=== PATIENT | female | born 1945 | race Caucasian/White ===

== ENCOUNTER 2022-06-04 22:39 | Outpatient (CLI) | payer OTHER, MEDICAID, SELFPAY | END 2022-06-04 22:40 | disposition home or self-care (01) | LOC: AMB 06-08 14:11 | PROVIDERS: PCP Family Medicine; Visit Provider Family Medicine | DX: S89.91XA Unspecified injury of right lower leg, initial encounter (principal); W01.0XXA Fall on same level from slipping, tripping and stumbling without subsequent striking against object, initial encounter; Y92.008 Other place in unspecified non-institutional (private) residence as the place of occurrence of the external cause | CPT/HCPCS: A0425; A0427 ==

== ENCOUNTER 2022-06-04 23:16 | Emergency (ER) | payer OTHER, MEDICAID, SELFPAY ==
[2022-06-04 23:16] VITALS: PULSE 58; RESP 20; TEMP 36.4; O2SAT 100; BMI 24.0
--- NOTE | 2022-06-04 23:38 | CRLHL7_ITS ---
For Patients: As a result of the Century Cures Act, medical imaging exams and procedure reports are released immediately into your electronic medical record. You may view this report before your referring provider. If you have questions, please contact your health care provider. INDICATION: Head injury from fall TECHNIQUE: CT Head without i.v. contrast. Coronal and sagittal reformats were obtained. COMPARISON: None FINDINGS: CSF space: Unremarkable for age. Brain: A portion of the vertex is excluded. No evidence of mass, acute infarction or hemorrhage is seen. No mass-effect or midline shift is seen. Mild diffuse cortical atrophy is noted. The brain parenchyma is otherwise normal in appearance with preservation of the duque-white matter junction. Calvarium: The visualized paranasal sinuses are well aerated. The mastoid air cells are clear. The visualized orbits are grossly unremarkable. The calvarium is unremarkable in appearance with no fractures identified. IMPRESSION: 1. No evidence of acute infarction, intracranial hemorrhage, or mass-effect seen. Please note that all CT scans at this facility use dose modulation, iterative reconstruction, and/or weight-based dosing when appropriate to reduce radiation dose to as low as reasonably achievable. Dictated by: Ghulam Steve MD @ 06/05/2022 00:20:13 (Electronically Signed)
--- NOTE | 2022-06-04 23:38 | CRLHL7_ITS ---
For Patients: As a result of the Cures Act, medical imaging exams and procedure reports are released immediately into your electronic medical record. You may view this report before your referring provider. If you have questions, please contact your health care provider. INDICATION: Pain after fall. COMPARISON: Pelvis and right femur from 05/21/2021. TECHNIQUE: The right hip was examined with AP and cross-table lateral views. An AP view of the pelvis is obtained for a total of three views. FINDINGS: The components of a right total hip prosthesis remain in anatomic alignment with no sign of fracture, loosening, or dislocation. There is a new, acute, oblique, periprosthetic fracture of the proximal right femoral shaft with mild anterior and lateral displacement of the distal fracture fragment. The components of a left total hip prosthesis in anatomic alignment with no sign of fracture, loosening, or dislocation. There is no sign of fracture of the enterprise osseous structures. The SI joints and pubic symphysis are normal in appearance. The rest of the bony pelvis and soft tissues are normal in appearance. COMPARISON IMPRESSION: New, acute, oblique, mildly displaced, periprosthetic fracture of the proximal right femoral shaft. Intact appearance of the components of the right total hip prosthesis. Intact appearance of the left hip including left total hip prosthesis. Dictated by Jozef Murrieta MD @ 06/05/2022 12:24:01 AM (Electronically Signed)
--- NOTE | 2022-06-04 23:40 | ED.GENADULT ---
HPI - General Adult General Time Seen by Provider: 23:30 Date Seen: 06/04/22 Chief complaint: Hip Injury/Pain Stated complaint: fall Time Seen by Provider: 06/04/22 23:18 Source: patient Mode of arrival: EMS Limitations: no limitations History of Present Illness HPI narrative: Patient is a 77-year-old female who took her usual bedtime medications of sertraline, Tylenol, trazodone. A short time later she felt the need to urinate and when she got up out of bed she was dizzy and fell to the floor. She had immediate pain in her right hip. She was unable to get up on her own. Her roommate and his daughter attempted to help her up onto a chair but the pain was so severe that she passed out. She was out for about 10 seconds. She did not hit her head. Paramedics were called and she is brought in by EMS. She has had previous bilateral knee and hip arthroplasties, none recently. She denies other injury. Related Data Home Medications Medication Instructions Recorded Confirmed atorvastatin 20 mg tablet mg 06/04/22 atorvastatin 40 mg tablet mg 06/04/22 cetirizine 10 mg tablet mg 06/04/22 folic acid 1 mg tablet 06/04/22 gabapentin 300 mg capsule mg 06/04/22 levothyroxine 137 mcg tablet mcg 06/04/22 sertraline 100 mg tablet mg 06/04/22 trazodone 100 mg tablet mg 06/04/22 Allergies Allergy/AdvReac Type Severity Reaction Status Date / Time adhesive tape Allergy Verified 06/04/22 23:36 amoxicillin Allergy Verified 06/04/22 23:36 benzocaine Allergy Verified 06/04/22 23:36 bupropion Allergy Verified 06/04/22 23:36 carbidopa Allergy Verified 06/04/22 23:36 cimetidine Allergy Verified 06/04/22 23:36 ketoconazole Allergy Verified 06/04/22 23:36 kiwi Allergy Swelling Verified 06/04/22 23:36 of Lip/Tongue/Throat levodopa Allergy Verified 06/04/22 23:36 niacin Allergy Verified 06/04/22 23:36 NSAIDS (Non-Steroidal Allergy Verified 06/04/22 23:36 Anti-Inflamma Sulfa (Sulfonamide Allergy Verified 06/04/22 23:36 Antibiotics) terfenadine Allergy Verified 06/04/22 23:36 theophylline [From Esvni-Dur] Allergy Verified 06/04/22 23:36 carbidopa-levodopa Allergy Uncoded 06/04/22 23:36 lanolin oil Allergy Uncoded 06/04/22 23:36 Review of Systems Narrative: She struggles with anxiety, depression, insomnia. She has arthritic pain in her knees, hips, back, hands that she manages with Tylenol. Review of systems in all other areas is noted to be negative. 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 antibiotic-impregnated cement spacer Acute delirium Adenomatous colon polyp Asthma Controlled type 2 diabetes mellitus with complication, without long-term current use of insulin DVT (deep venous thrombosis) Esophageal reflux Heart failure with preserved ejection fraction Hyperlipidemia Hypertension Hypothyroidism Major depressive disorder, recurrent episode BRITNEY (obstructive sleep apnea) Positive WILLOW (antinuclear antibody) PTSD (post-traumatic stress disorder) Pulmonary embolism Pyelonephritis Restless leg Rhabdomyolysis Stenosis of cervical spine SVT (supraventricular tachycardia) Urinary retention Vitamin B12 deficiency Surgical History (Updated 06/05/22 @ 00:57 by Stefano Martinez MD) History of total left knee replacement History of total right knee replacement Hx of gastric bypass S/P total left hip arthroplasty S/P total right hip arthroplasty Status post revision of total replacement of right knee Social History Smoking Status: Never smoker Do you use any of these nicotine containing products: None Non-prescribed substance use: denies use Exam Narrative: Exam Narrative: Vitals noted. HEENT: Conjunctiva clear. Tympanic membranes are pearly white bilaterally. Posterior pharynx is clear without erythema or exudate. Neck is supple without adenopathy, thyromegaly, carotid bruit. Lungs: Diminished but Clear to auscultation in all damian. No wheezes, rales, rhonchi. Heart: Regular rate and rhythm without murmur. Abdomen: Soft and nontender. No guarding, rigidity, rebound. Bowel sounds are normal. No palpable masses. Extremities: She has pain in the right thigh and a lot of pain with attempts to flex her knee or hip. No left leg pain. Skin: No abnormalities noted of the exposed skin. Neurologic: Awake, alert, fully oriented. Neurologic exam is nonfocal. Const: Vital Signs, click to edit/add: Vital Signs - 24 hr 06/04/22 23:16 06/05/22 01:58 Temperature 97.5 F L 97.5 F L Pulse Rate [Left P ulse Oximeter] 58 L 76 Respiratory Rate 20 14 Blood Pressure [Le ft Upper Arm] 125/61 Pulse Oximetry 100 97 Oxygen Delivery Me thod Room Air Room Air Course Course Hospital Course: Patient is seen and examined. She received fentanyl 50 mcg IV for pain. CT of her head is negative. CBC and BMP are normal other than a potassium of 3.3. TSH is pending. COVID swab is pending. X-ray of her right hip shows a periprosthetic fracture that is minimally displaced. The prosthesis itself is intact. I spoke with Africa Guzman, the orthopedic PA covering for our on-call orthopedic surgeon, and she informed me that we do not have the equipment to fix this type of fracture that our local surgeons generally did not attempt this type of surgery. She has recommended that I attempt to transfer the patient to a tertiary center that can repair this complicated fracture. She asked for and received 2nd dose of fentanyl. We will begin calling around to find a tertiary center with an open bed. The patient will be boarded in our emergency department until that time. Reevaluation(s) Reevaluation #1: Dr Shepherd from [facility] has kindly accepted the patient in transfer. They will call when she can be transported (currently on a wait list). I will ask Radiology to push the films. COVID negative. Reevaluation #2: Her TSH is 97. In reviewing her old chart it was 117 on 04/15/2022. Her hemoglobin A1c at that time was 5.9. She has a history of DVT and PE and is on Eliquis for anticoagulation. Her PCP is Sejal Ledesma MD at [facility]. Her current med list is: Atorvastatin 20 mg daily, Eliquis 2.5 mg b.i.d., Zyrtec 10 mg daily, folic acid 1 mg daily, hydrochlorothiazide 25 mg daily, gabapentin 300 mg t.i.d., Synthroid 137 mcg daily, sertraline 200 mg daily, trazodone 100 mg q.h.s.. She uses Tylenol and occasional Percocet for pain. Vital Signs Vital signs: Initial Vital Signs Temperature 97.5 F L 06/04/22 23:16 Temperature Source Temporal Artery Scan 06/04/22 23:16 Pulse Rate 58 L 06/04/22 23:16 Pulse Rhythm 06/04/22 23:16 Pulse Strength 3+ Normal 06/04/22 23:16 Respiratory Rate 20 06/04/22 23:16 Blood Pressure Position Supine 06/04/22 23:16 Pulse Oximetry 100 06/04/22 23:16 Oxygen Delivery Method 06/04/22 23:16 Vital Signs Temperature 97.5 F L 06/04/22 23:16 Pulse Rate 58 L 06/04/22 23:16 Respiratory Rate 20 06/04/22 23:16 Pulse Oximetry 100 06/04/22 23:16 Oxygen Delivery Method 06/04/22 23:16 Temperature 97.5 F L 06/05/22 01:58 Pulse Rate 76 06/05/22 01:58 Respiratory Rate 14 06/05/22 01:58 Blood Pressure 125/61 06/05/22 01:58 Pulse Oximetry 97 06/05/22 01:58 Oxygen Delivery Method 06/05/22 01:58 Medical Decision Making Lab Data Labs: Lab Results 06/04/22 06/04/22 06/04/22 Range/Units 23:30 23:30 23:30 WBC 9.53 (4.50-11.00) K/uL RBC 4.39 (4.00-5.20) m/uL Hgb 14.1 (12.0-16.0) gm/dL Hct 43.1 (33.0-51.0) % MCV 98 (80-100) fL MCH 32 (26-34) pg MCHC 33 (32-36) gm/dL RDW Coeff of Risa 11.9 (11.5-15.5) % Plt Count 257 (140-440) K/uL Neut % (Auto) 76.3 H (42.0-72.0) % Lymph % (Auto) 14.2 L (20-44) % [place] % (Auto) 5.0 (0.0-11.0) % Eos % (Auto) 4.1 (0.0-7.0) % Baso % (Auto) 0.2 (0.0-3.0) % Neut # (Auto) 7.30 H (1.7-7.0) K/uL Lymph # (Auto) 1.40 (0.90-2.90) K/uL [place] # (Auto) 0.50 (0.00-0.90) K/UL Eos # (Auto) 0.39 (0.00-0.50) K/uL Baso # (Auto) 0.02 (0.00-0.30) K/uL Sodium 139 (135-149) mmol/L Potassium 3.3 L (3.6-5.1) mmol/L Chloride 109 (96-114) mmol/L Carbon Dioxide 28 (20-32) mmol/L BUN 14 (7-30) mg/dL Creatinine 0.7 (0.5-1.5) mg/dL Estimated Creat Clear 50.80 Estimated GFR 90 ml/min Glucose 143 H (60-115) mg/dL Calcium 9.0 (8.4-10.6) mg/dL TSH 97.000 H (0.270-4.20) uIU/mL SARS-CoV-2 (PCR) (Negative) 06/05/22 Range/Units 00:20 WBC (4.50-11.00) K/uL RBC (4.00-5.20) m/uL Hgb (12.0-16.0) gm/dL Hct (33.0-51.0) % MCV (80-100) fL MCH (26-34) pg MCHC (32-36) gm/dL RDW Coeff of Risa (11.5-15.5) % Plt Count (140-440) K/uL Neut % (Auto) (42.0-72.0) % Lymph % (Auto) (20-44) % [place] % (Auto) (0.0-11.0) % Eos % (Auto) (0.0-7.0) % Baso % (Auto) (0.0-3.0) % Neut # (Auto) (1.7-7.0) K/uL Lymph # (Auto) (0.90-2.90) K/uL [place] # (Auto) (0.00-0.90) K/UL Eos # (Auto) (0.00-0.50) K/uL Baso # (Auto) (0.00-0.30) K/uL Sodium (135-149) mmol/L Potassium (3.6-5.1) mmol/L Chloride (96-114) mmol/L Carbon Dioxide (20-32) mmol/L BUN (7-30) mg/dL Creatinine (0.5-1.5) mg/dL Estimated Creat Clear Estimated GFR ml/min Glucose (60-115) mg/dL Calcium (8.4-10.6) mg/dL TSH (0.270-4.20) uIU/mL SARS-CoV-2 (PCR) Negative SARS-CoV-2 (Negative) Discharge Plan Discharge Clinical Impression: Periprosthetic fracture around internal prosthetic right hip joint, initial encounter Patient Disposition: [facility] Discharge Location: [facility] Condition: Stable Discharge Comment: CC: Baltazar
[2022-06-04 23:48] LABS: Basophils Absolute Auto 0.02 K/uL (0.00-0.30); Basophils Percent Auto 0.2 % (0.0-3.0); Eosinophils Absolute Auto 0.39 K/uL (0.00-0.50); Eosinophils Percent Auto 4.1 % (0.0-7.0); Hematocrit 43.1 % (33.0-51.0); Hemoglobin* 14.1 gm/dL (12.0-16.0); Immature Granulocytes Abs Auto 0.02 K/uL (0.00-0.30); Immature Granulocytes Pct Auto 0.2 %; Lymphocytes Percent Auto 14.2 % (20-44); Mean Corpuscular HGB Conc 33 gm/dL (32-36); Mean Corpuscular Hemoglobin 32 pg (26-34); Mean Corpuscular Volume 98 fL (80-100); Neutrophils Percent Auto 76.3 % (42.0-72.0); Platelet Count* 257 K/uL (140-440); RDW Coefficient of Variation % 11.9 % (11.5-15.5); Red Blood Count 4.39 m/uL (4.00-5.20); Slide Review Reflex No; White Blood Count* 9.53 K/uL (4.50-11.00)
[2022-06-05 00:01] LABS: Chloride* 109 mmol/L (96-114); Potassium* 3.3 mmol/L (3.6-5.1); Sodium* 139 mmol/L (135-149)
[2022-06-05 00:04] LABS: Blood Urea Nitrogen* 14 mg/dL (7-30); Carbon Dioxide* 28 mmol/L (20-32); Creatinine* 0.7 mg/dL (0.5-1.5); Estimated Glomerular Filt Rate 90 ml/min; Glucose* 143 mg/dL (60-115)
[2022-06-05] MEDS: fentaNYL 100 MCG/2 ML inj 50 MCG IVP ×3 (00:17→03:15)
[2022-06-05 01:21] LABS: SARS PCR* Negative SARS-CoV-2 (Negative)
[2022-06-05 01:58] VITALS: BP 125/61; PULSE 76; RESP 14; TEMP 36.4; O2SAT 97
--- NOTE | 2022-06-05 02:16 | ED.NURSE ---
Report to accepting [facility] RN. Patient to be transferred to [facility], [address], Room 9108 - Bed 2. EMS Dispatch notified. Patient resting on cot in room.
== END 2022-06-05 03:41 | disposition short-term general hospital (02) ==
PROVIDERS: Emergency Provider Family Medicine; PCP Family Medicine
DX: M97.01XA Periprosthetic fracture around internal prosthetic right hip joint, initial encounter (principal); W19.XXXA Unspecified fall, initial encounter; R42 Dizziness and giddiness; Z13.29 Encounter for screening for other suspected endocrine disorder
CPT/HCPCS: 36415; 70450; 73502; 80048; 84443; 85025; 87635; 99283; 99285; J3010

== ENCOUNTER 2022-06-05 03:26 | Outpatient (CLI) | payer OTHER, MEDICAID, SELFPAY | END 2022-06-05 03:27 | disposition home or self-care (01) | PROVIDERS: PCP Family Medicine; Visit Provider Family Medicine | DX: S72.91XD Unspecified fracture of right femur, subsequent encounter for closed fracture with routine healing (principal) | CPT/HCPCS: A0425; A0426; A0428 ==

== ENCOUNTER 2023-06-21 10:13 | Outpatient (CLI) | payer OTHER, SELFPAY | END 2023-06-21 10:14 | disposition home or self-care (01) | LOC: AMB 06-22 11:56 | PROVIDERS: PCP Family Medicine; Visit Provider Family Medicine | DX: R41.82 Altered mental status, unspecified (principal); R53.1 Weakness | CPT/HCPCS: A0425; A0429 ==

== ENCOUNTER 2023-06-21 10:49 | Observation (INO) | payer OTHER, SELFPAY ==
[2023-06-21] VITALS (7 sets, daily range): BP systolic 127–150; BP diastolic 53–68; PULSE 73–89; RESP 16–18; TEMP 36.3–36.6; O2SAT 98–100; BMI 21.1; BMI 20.8
--- NOTE | 2023-06-21 11:41 | ED.GENADULT ---
HPI - General Adult General Chief complaint: Weakness Stated complaint: Weakness Time Seen by Provider: 06/21/23 11:41 History of Present Illness HPI narrative: Significant other phoned for EMS this AM to report weakness and ask for transport for patient. EMS state she was in bed, had not moved from bed for some time and was incontinent of old urine and stool. She reported that she is too weak to move though significant other states this is on?going issue and stems from lack of ambition. She reports numerous falls from weakness over several weeks but no injuries. Patient would like placement in a skilled nursing and reports a social service worker through [facility] but is not very helpful. Vulnerable adult report was filed by PD due to state of apartment. 78-year-old woman presenting to the emergency department with concern of weakness. Has not had any reported fever. I ask Apoorva if she has a roommate. She thinks that they probably moved out by now. Apparently has a payor through the [facility]. She apparently is unsure how long this arrangement has been in place or why it was arranged. Her roommate apparently would get her groceries. Apparently Apoorva called for EMS for help today. She notes a fall recently on her walker with pain in the anterior low chest. Complicating her ambulation is left leg pain. She says that it is a combination of diabetic neuropathy and unrelated pain. Denies dysuria or cough or specific abdominal pain but indicates the low chest pain. Does acknowledge that there might be some sores on her butt. EMS and PD noting state of apartment have filed vulnerable adult report. I do call to brother who saw her yesterday just lying in bed. Otherwise he says that she lives independently and does not have much information offer. Uncertain why has had payee. I tatitlek back around to ask further questions about needs here today, she reports that she has just simply been too weak and has been falling frequently. She has been falling onto her walker. She feels that she needs at least placement in assisted living. Underlying history of depression, PTSD, B12 deficiency setting gastric bypass. Related Data Home Medications Medication Instructions Recorded Confirmed atorvastatin 40 mg tablet 40 mg PO QPM 06/04/22 06/22/23 folic acid 1 mg tablet 1 mg PO DAILY 06/04/22 06/22/23 gabapentin 300 mg capsule 300 mg PO TID 06/04/22 06/22/23 levothyroxine 137 mcg tablet 137 mcg PO DAILY 06/04/22 06/22/23 trazodone 100 mg tablet 100 mg PO HS 06/04/22 06/22/23 Previous Rx's Medication Instructions Recorded chlorhexidine gluconate 0.12 % 15 ml SWISH/SPIT QID #900 mL 06/23/23 mouthwash cholecalciferol (vitamin D3) 25 25 mcg PO DAILY #30 tabs 06/23/23 mcg (1,000 unit) tablet cyanocobalamin (vitamin B-12) 500 1,000 mcg (2 x 500 mcg) PO DAILY 06/23/23 mcg tablet (Vitamin B-12) #30 tabs melatonin 3 mg tablet 3 mg PO HS PRN #30 tabs 06/23/23 multivitamin with folic acid 400 1 tab PO BID #60 tabs 06/23/23 mcg tablet (Thera) sertraline 100 mg tablet 100 mg PO HS #30 tabs 06/23/23 thiamine HCl (vitamin B1) 500 mg 500 mg PO BID #60 tabs 06/23/23 tablet Allergies Allergy/AdvReac Type Severity Reaction Status Date / Time adhesive tape Allergy Verified 06/04/22 23:36 amoxicillin Allergy Verified 06/04/22 23:36 benzocaine Allergy Verified 06/04/22 23:36 bupropion Allergy Verified 06/04/22 23:36 carbidopa Allergy Verified 06/04/22 23:36 cimetidine Allergy Verified 06/04/22 23:36 ketoconazole Allergy Verified 06/04/22 23:36 kiwi Allergy Swelling Verified 06/04/22 23:36 of Lip/Tongue/Throat levodopa Allergy Verified 06/04/22 23:36 niacin Allergy Verified 06/04/22 23:36 NSAIDS (Non-Steroidal Allergy Verified 06/04/22 23:36 Anti-Inflamma Sulfa (Sulfonamide Allergy Verified 06/04/22 23:36 Antibiotics) terfenadine Allergy Verified 06/04/22 23:36 theophylline [From Esvin-Dur] Allergy Verified 06/04/22 23:36 carbidopa-levodopa Allergy Uncoded 06/04/22 23:36 lanolin oil Allergy Uncoded 06/04/22 23:36 Review of Systems Status of ROS: Reports: 6 or more systems reviewed and unremarkable except as noted in History and below [facility] Medical History (Updated 06/29/23 @ 00:01 by Background Daemon) Discharge planning issues ?Z02.9 - Encounter for administrative examinations, unspecified (ICD-10) Nutritional deficiency ?E63.9 - Nutritional deficiency, unspecified (ICD-10) Cognitive impairment ?R41.89 - Other symptoms and signs involving cognitive functions and awareness (ICD-10) Pulmonary embolism ?I26.99 - Other pulmonary embolism without acute cor pulmonale (ICD-10) Positive WILLOW (antinuclear antibody) ?R76.8 - Other specified abnormal immunological findings in serum (ICD-10) Restless leg ?G25.81 - Restless legs syndrome (ICD-10) Pyelonephritis ?N12 - Tubulo-interstitial nephritis, not specified as acute or chronic (ICD-10) Urinary retention ?R33.9 - Retention of urine, unspecified (ICD-10) BRITNEY (obstructive sleep apnea) ?G47.33 - Obstructive sleep apnea (adult) (pediatric) (ICD-10) Asthma ?J45.909 - Unspecified asthma, uncomplicated (ICD-10) PTSD (post-traumatic stress disorder) ?F43.10 - Post-traumatic stress disorder, unspecified (ICD-10) Major depressive disorder, recurrent episode ?F33.9 - Major depressive disorder, recurrent, unspecified (ICD-10) Acute delirium ?R41.0 - Disorientation, unspecified (ICD-10) 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 antibiotic-impregnated cement spacer ?Z89.529 - Acquired absence of unspecified knee (ICD-10) Stenosis of cervical spine ?M48.02 - Spinal stenosis, cervical region (ICD-10) Rhabdomyolysis ?M62.82 - Rhabdomyolysis (ICD-10) Adenomatous colon polyp ?D12.6 - Benign neoplasm of colon, unspecified (ICD-10) Esophageal reflux ?K21.9 - Gastro-esophageal reflux disease without esophagitis (ICD-10) Controlled type 2 diabetes mellitus with complication, without long-term current use of insulin ?E11.8 - Type 2 diabetes mellitus with unspecified complications (ICD-10) Vitamin B12 deficiency ?E53.8 - Deficiency of other specified B group vitamins (ICD-10) Hypothyroidism ?E03.9 - Hypothyroidism, unspecified (ICD-10) Hyperlipidemia ?E78.5 - Hyperlipidemia, unspecified (ICD-10) SVT (supraventricular tachycardia) ?I47.1 - Supraventricular tachycardia (ICD-10) Heart failure with preserved ejection fraction ?I50.30 - Unspecified diastolic (congestive) heart failure (ICD-10) DVT (deep venous thrombosis) ?I82.409 - Acute embolism and thrombosis of unspecified deep veins of unspecified lower extremity (ICD-10) Hypertension ?I10 - Essential (primary) hypertension (ICD-10) Surgical History History of total left knee replacement ?Z96.652 - Presence of left artificial knee joint (ICD-10) History of total right knee replacement ?Z96.651 - Presence of right artificial knee joint (ICD-10) S/P total right hip arthroplasty ?Z96.641 - Presence of right artificial hip joint (ICD-10) S/P total left hip arthroplasty ?Z96.642 - Presence of left artificial hip joint (ICD-10) Status post revision of total replacement of right knee ?Z96.651 - Presence of right artificial knee joint (ICD-10) Hx of gastric bypass ?Z98.84 - Bariatric surgery status (ICD-10) Family History (Updated 06/21/23 @ 18:13 by Devonte Rodriguez MD) Mother Diabetes Father Diabetes Stroke Social History (Updated 06/21/23 @ 18:14 by Devonte Rodriguez MD) Narrative: She lives in an apartment with her friend Roberto. She has never been a smoker. She rarely drinks alcohol. No recreational drug use. Code status is DNR. Healthcare power of contract attorney is her brother, Chino Fuentes, of [place] What is your current living situation?: I have a place to live at present, but am concerned about future Problems where you live: no known problems Problems where you live details: none In the past 12 months, utilities in danger of being shut off: no In past 12 months, lack of transportation kept you from medical appts, meetings, work, or getting things needed for daily living: no In the past 12 mos, have been you worried that your food would run out before you had money to buy more?: never true In the past 12 mos, the food you bought just didn't last and you didn't have money to buy more?: never true Highest level of school completed/degree received: Doctoral degree Smoking Status: Never smoker Do you use any of these nicotine containing products: None How often do you have a drink containing alcohol: monthly or less AUDIT-C Alcohol total score: 1 Non-prescribed substance use: denies use Caffeine: Yes How often does anyone, including family, friends and others, physically hurt you: never How often does anyone, including family, friends and others, insult or talk down to you: never How often does anyone, including family, friends and others, threaten you with harm: never How often does anyone, including family, friends and others, scream or curse at you: never service: No Exam Narrative: Exam Narrative: Smell of urine and ketones when I enter the room. Seems little distracted or slightly confused sometimes when answering questions. Cranial nerves 2-12 intact. Well-healed surgical scars over bilateral knees. No indication of injury/bruising on anterior chest in areas of reported pain. Pushes my hand away during exam over the anterior lower ribs bilaterally in apparent pain. Abdomen otherwise is soft and appears to be nontender. Gingivitis in her mouth which actually appears moist. Missing various dentition/decay. Lungs are clear. Needs some assistance to get to sitting. Heart is in regular rate and rhythm. Extremities are well perfused. Moving upper extremities without difficulty. Able to raise either leg from the bed without particular pain or disability. Const: Vital Signs, click to edit/add: Vital Signs - 24 hr 06/21/23 11:09 06/21/23 11:50 06/21/23 15:43 Temperature 97.4 F L Pulse Rate [Pulse Oximeter] 84 83 82 Respiratory Rate 18 18 18 Blood Pressure [Ri ght Upper Arm] 127/68 139/61 150/67 H Pulse Oximetry 99 100 98 Oxygen Delivery Me thod Room Air Room Air Documenting provider has reviewed patient's vital signs: yes Course Vital Signs Vital signs: Initial Vital Signs Temperature 97.4 F L 06/21/23 11:09 Temperature Source Temporal Artery Scan 06/21/23 11:09 Pulse Rate 84 06/21/23 11:09 Respiratory Rate 18 06/21/23 11:09 Blood Pressure 127/68 06/21/23 11:09 Blood Pressure Mean 87 06/21/23 11:09 Pulse Oximetry 99 06/21/23 11:09 Oxygen Delivery Method Room Air 06/21/23 11:09 Vital Signs Temperature 97.4 F L 06/21/23 11:09 Pulse Rate 84 06/21/23 11:09 Respiratory Rate 18 06/21/23 11:09 Blood Pressure 127/68 06/21/23 11:09 Pulse Oximetry 99 06/21/23 11:09 Oxygen Delivery Method Room Air 06/21/23 11:09 Temperature 97.8 F 06/23/23 07:00 Pulse Rate 93 06/23/23 07:00 Respiratory Rate 20 06/23/23 07:00 Blood Pressure 124/64 06/23/23 07:00 Pulse Oximetry 94 06/23/23 07:00 Oxygen Delivery Method Room Air 06/23/23 07:00 Medications Administered Medications: Discontinued Medications Generic Name Dose Route Start Last Admin Trade Name Freq PRN Reason Stop Dose Admin Atorvastatin Calcium 40 mg 06/21/23 21:00 06/22/23 20:45 Atorvastatin Calcium 40 Mg Tablet PO 40 mg HS SIRENA Administration Chlorhexidine Gluconate 15 ml 06/21/23 21:00 06/23/23 09:10 Chlorhexidine Gluconate 473 Ml Mouthwash SWISH/SPIT 15 ml QID SIRENA Administration Cyanocobalamin 1,000 mcg 06/22/23 09:00 06/23/23 09:10 Cyanocobalamin (Vitamin B-12) 500 Mcg Tablet PO 1,000 mcg DAILY SIRENA Administration Enoxaparin Sodium 40 mg 06/21/23 21:00 06/22/23 20:43 Enoxaparin 40 Mg/0.4 Ml Inj SUBCUT 40 mg HS SIRENA Administration Folic Acid 1 mg 06/22/23 09:00 06/23/23 09:10 Folic Acid 1 Mg Tablet PO 1 mg DAILY SIRENA Administration Gabapentin 300 mg 06/21/23 21:00 06/23/23 09:10 Gabapentin 300 Mg Capsule PO 300 mg TID SIRENA Administration Sodium Chloride 1,000 mls @ 1,000 mls/hr 06/21/23 12:08 06/21/23 15:18 0.9 % Sodium Chloride 1000 Ml IV 06/21/23 13:07 Infused .Q1H ONE Infusion Lactated Ringer's 1,000 mls @ 1,000 mls/hr 06/21/23 14:43 06/21/23 16:16 Lactated Ringers 1000 Ml IV 06/21/23 15:42 Infused .Q1H ONE Infusion Thiamine HCl 500 mg/ Sodium 105 mls @ 105 mls/hr 06/22/23 12:00 06/23/23 04:51 Chloride IVPB 06/24/23 04:59 Infused Q8H SIRENA Infusion Levothyroxine Sodium 25 mcg 06/22/23 06:00 06/23/23 06:05 Levothyroxine 25 Mcg Tablet PO 25 mcg DAILY@0600 SIRENA Administration Levothyroxine Sodium 112 mcg 06/22/23 07:00 06/23/23 06:05 Levothyroxine 112 Mcg Tablet PO 112 mcg DAILY@0700 SIRENA Administration Melatonin 3 mg 06/21/23 17:45 06/21/23 22:28 Melatonin 3 Mg Tablet PO 3 mg HS PRN Administration Multivitamins/Minerals 1 tab 06/21/23 21:00 06/23/23 09:10 Multivitamin/Minerals 1 Tablet PO 1 tab BID SIRENA Administration Sertraline HCl 100 mg 06/21/23 21:00 06/22/23 20:45 Sertraline 100 Mg Tablet PO 100 mg HS SIRENA Administration Sodium Chloride 5 ml 06/21/23 21:00 06/22/23 19:51 Sodium Chloride 0.9 % (Flush) 10 Ml Syringe IVF 5 ml BID SIRENA Administration Sodium Chloride 250 ml 06/22/23 11:45 06/22/23 12:00 0.9 % Sodium Chloride 250 Ml IV 250 ml Q24H SIRENA Administration Thiamine HCl 500 mg 06/22/23 09:00 06/22/23 08:38 Thiamine 100 Mg Tablet PO 500 mg DAILY SIRENA Administration Trazodone HCl 100 mg 06/21/23 21:00 06/22/23 20:45 Trazodone Hcl 50 Mg Tablet PO 100 mg HS SIRENA Administration Vitamin D 25 mcg 06/22/23 09:00 06/23/23 09:10 Cholecalciferol (Vitamin D3) 25 Mcg Tablet (1000 Unit) PO 25 mcg DAILY SIRENA Administration Medical Decision Making MDM Narrative Medical decision making narrative: At a minimum I would presume significant dehydration due to poor self cares and evidence by smell of ketones in the room. Look for evidence of infection. It was difficult to obtain IV presumably due to dehydration status. IV has been placed and receiving initially normal saline. Transition to LR. Concern of potential sacral or buttock ulcers/erosions. Once finally up to commode which had been resistant to do, noted by nursing to be otherwise diffusely covered with feculent material and urine. There is erythema but no breakdown in skin as reported to me. Once finally able to obtain urine, clearly caught a treated with 4+ ketones but otherwise no evidence of infection. Labs otherwise reassuring though concentrated with hemoglobin of 15.5. Chest x-ray reviewed by me looks to be without infiltrate with normal cardiac silhouette. This was not a dedicated rib study. Otherwise has been vitally well during time in the emergency department. Appears to have a little more energy after some hydration. I would expect her to be admitted to this facility. We had inquired with social Work; pending further assessment here. Medical Records Medical records reviewed: Yes I reviewed the patient's medical records Lab Data Lab results reviewed: Yes I reviewed the patient's lab results Labs: Lab Results 06/21/23 06/21/23 06/21/23 Range/Units 13:40 15:35 15:56 WBC 7.31 (4.50-11.00) K/uL RBC 4.84 (4.00-5.20) m/uL Hgb 15.5 (12.0-16.0) gm/dL Hct 47.8 (33.0-51.0) % MCV 99 (80-100) fL MCH 32 (26-34) pg MCHC 32 (32-36) gm/dL RDW Coeff of Risa 11.9 (11.5-15.5) % Plt Count 295 (140-440) K/uL Neut % (Auto) 77.3 H (42.0-72.0) % Lymph % (Auto) 17.4 L (20-44) % Seminole % (Auto) 4.4 (0.0-11.0) % Eos % (Auto) 0.0 (0.0-7.0) % Baso % (Auto) 0.1 (0.0-3.0) % Neut # (Auto) 5.70 (1.7-7.0) K/uL Lymph # (Auto) 1.30 (0.90-2.90) K/uL [place]in[place] # (Auto) 0.30 (0.00-0.90) K/UL Eos # (Auto) 0.00 (0.00-0.50) K/uL Baso # (Auto) 0.01 (0.00-0.30) K/uL Abs Immat Gran (auto) 0.06 (0.00-0.30) K/uL Imm/Tot Granulo (auto) 0.8 % Sodium 139 (135-149) mmol/L Potassium 5.2 H (3.6-5.1) mmol/L Chloride 106 (96-114) mmol/L Carbon Dioxide 12 L (20-32) mmol/L Anion Gap 21 H (7-15) mEq/L BUN 27 (7-30) mg/dL Creatinine 0.7 (0.5-1.5) mg/dL Estimated Creat Clear 49.69 Estimated GFR 90 ml/min Glucose 77 (60-115) mg/dL Lactate 0.7 (0.5-1.9) mmol/L Calcium 10.0 (8.4-10.6) mg/dL Magnesium 2.1 (1.5-2.6) mg/dL Total Bilirubin 0.8 (0.1-1.5) mg/dL Direct Bilirubin 0.5 (0.0-0.5) mg/dL AST 31 (12-35) U/L ALT 15 (4-35) U/L Alkaline Phosphatase 105 (40-150) U/L Total Creatine Kinase 90 (41-117) U/L C-Reactive Protein < 0.5 L (0.5-1.0) mg/dL NT-Pro-B Natriuret Pep 785 pg/mL Total Protein 7.6 (6.0-8.3) g/dL Albumin 4.6 (3.3-5.0) g/dL TSH 0.436 (0.270-4.20) uIU/mL Urine Color Yellow (Yellow) Urine Appearance Turbid A (Clear) Urine pH 5.5 (5.0-8.5) Ur Specific [place] >= 1.030 (1.000-1.030) Urine Protein Negative (Negative) Urine Glucose (UA) Negative (Negative) Urine Ketones 4+ A (Negative) Urine Blood Negative (Negative) Urine Nitrite Negative (Negative) Urine Bilirubin 1+ A (Negative) Urine Urobilinogen 0.2 (0.2-1.0) Ur Leukocyte Esterase Negative (Negative) Urine RBC 0-2 (0-2) Urine WBC 0-2 (0-5) Ur Squamous Epith Cells Few (None-Few) Urine Bacteria None (None) Urine Opiates Screen Negative (Negative) Ur Oxycodone Screen Negative (Negative) Urine Methadone Screen Negative (Negative) Ur Barbiturates Screen Negative (Negative) U Tricyclic Antidepress Negative (Negative) Ur Phencyclidine Scrn Negative (Negative) Ur Amphetamines Screen Negative (Negative) U Methamphetamines Scrn Negative (Negative) U Benzodiazepines Scrn Negative (Negative) Urine Cocaine Screen Negative (Negative) U Marijuana (THC) Screen Negative (Negative) Ur Drug Screen Comment See Note Ethyl Alcohol < 0.01 L (0.01-0.03) % SARS-CoV-2 (PCR) Negative SARS-CoV-2 (Negative) Influenza Type A (PCR) Negative PCR FLU A (Negative) Influenza Type B (PCR) Negative PCR FLU B (Negative) RSV (PCR) Negative PCR RSV (Negative) Lab Acknowledgement Test Added ECG Data Attestation: I personally reviewed and interpreted this ECG as follows: (Sinus rhythm at rate of 78. There is QTc noted of 501ms) Discharge Plan Discharge Clinical Impression: Adult failure to thrive, Dehydration, Weakness Patient Disposition: Admitted As Observation Condition: Improved Activity Level: Activity as Tolerated Discharge Diet: Regular
--- NOTE | 2023-06-21 12:09 | XR_ITS ---
Patient: ANH HERNANDEZ Facility:?[facility] Patient ID:?[id number] Site Patient ID:?[id number]. Site :?[id number] Study:?XRay-Chest 1 VIEW PORTABLE-06/21/2023 12:47:27 PM Ordering Physician:AZUCENA Final Report: INDICATION: LOW BILATERAL ANTERIOR CHEST WALL PAIN TECHNIQUE: Chest 1 view. COMPARISON: May 21, 2021. FINDINGS: Cardiovascular and mediastinum: Cardiomediastinal silhouette is within normal limits. Lungs and pleural spaces: Lungs are clear. No evidence of pleural effusion. No pneumothorax identified. Bones and soft tissues: Unremarkable. IMPRESSION: No acute cardiopulmonary process identified. No significant interval change. Dictated by Yelena Paiz MD @ 06/21/2023 1:52:18 PM Signed by:?Yelena Paiz MD @06/21/2023 1:52:18 PM (Electronic Signature)
[2023-06-21] MEDS: 0.9 % SODIUM CHLORIDE 1000 ml 1,000 ML IV (13:48)
[2023-06-21 13:50] LABS: Lactate* 0.7 mmol/L (0.5-1.9)
[2023-06-21 13:56] LABS: Basophils Absolute Auto 0.01 K/uL (0.00-0.30); Basophils Percent Auto 0.1 % (0.0-3.0); Hematocrit 47.8 % (33.0-51.0); Hemoglobin* 15.5 gm/dL (12.0-16.0); Immature Granulocytes Abs Auto 0.06 K/uL (0.00-0.30); Immature Granulocytes Pct Auto 0.8 %; Lymphocytes Percent Auto 17.4 % (20-44); Mean Corpuscular HGB Conc 32 gm/dL (32-36); Mean Corpuscular Hemoglobin 32 pg (26-34); Mean Corpuscular Volume 99 fL (80-100); Monocytes Percent Auto 4.4 % (0.0-11.0); Neutrophils Percent Auto 77.3 % (42.0-72.0); Platelet Count* 295 K/uL (140-440); RDW Coefficient of Variation % 11.9 % (11.5-15.5); Red Blood Count 4.84 m/uL (4.00-5.20); White Blood Count* 7.31 K/uL (4.50-11.00)
[2023-06-21 13:57] LABS: Slide Review Reflex No
[2023-06-21 14:06] LABS: Albumin* 4.6 g/dL (3.3-5.0)
[2023-06-21 14:08] LABS: Chloride* 106 mmol/L (96-114); Potassium* 5.2 mmol/L (3.6-5.1); Sodium* 139 mmol/L (135-149)
[2023-06-21 14:09] LABS: Alkaline Phosphatase* 105 U/L (40-150); Aspartate Amino Transferase* 31 U/L (12-35); Bilirubin Direct* 0.5 mg/dL (0.0-0.5); Bilirubin Total* 0.8 mg/dL (0.1-1.5); Magnesium* 2.1 mg/dL (1.5-2.6); Total Protein* 7.6 g/dL (6.0-8.3)
[2023-06-21 14:10] LABS: Alanine Aminotransferase* 15 U/L (4-35)
[2023-06-21 14:11] LABS: Creatinine* 0.7 mg/dL (0.5-1.5); Est. Creatinine Clearance* 49.69; Estimated Glomerular Filt Rate 90 ml/min
[2023-06-21 14:12] LABS: Anion Gap 21 mEq/L (7-15); Blood Urea Nitrogen* 27 mg/dL (7-30); Carbon Dioxide* 12 mmol/L (20-32); Glucose* 77 mg/dL (60-115)
[2023-06-21 14:16] LABS: C Reactive Protein* < 0.5 mg/dL (0.5-1.0); Ethanol* < 0.01 % (0.01-0.03)
[2023-06-21 14:21] LABS: NT Pro B Type NatriureticPept* 785 pg/mL
[2023-06-21 14:33] LABS: PCR FLU A Negative PCR FLU A (Negative); PCR FLU B Negative PCR FLU B (Negative); PCR RSV Negative PCR RSV (Negative); SARS PCR* Negative SARS-CoV-2 (Negative)
[2023-06-21 15:13] LABS: Thyroid Stimulating Hormone* 0.436 uIU/mL (0.270-4.20)
[2023-06-21] MEDS: LACTATED RINGERS 1000 ML 1,000 ML IV (15:18)
[2023-06-21 15:43] LABS: Appearance Urine Turbid (Clear); Bilirubin Urine 1+ (Negative); Blood Urine Negative (Negative); Color Urine Yellow (Yellow); Glucose Urine Negative (Negative); Ketones Urine 4+ (Negative); Leukocyte Esterase Urine Negative (Negative); Nitrite Urine Negative (Negative); Protein Urine Negative (Negative); Specific Gravity Urine >= 1.030 (1.000-1.030); Urobilinogen Urine 0.2 (0.2-1.0); pH Urine 5.5 (5.0-8.5)
[2023-06-21 15:50] LABS: Amphetamine Screen Urine Negative (Negative); Barbiturate Screen Urine Negative (Negative); Benzodiazepines Screen Urine Negative (Negative); Cannabinoid Screen Urine Negative (Negative); Cocaine Screen Urine Negative (Negative); Methadone Screen Urine Negative (Negative); Methamphetamines Screen Urine Negative (Negative); Opiate Screen Urine Negative (Negative); Oxycodone Screen Urine Negative (Negative); Phencyclidine Screen Urine Negative (Negative); Tricyclic Antidepressant Urine Negative (Negative)
[2023-06-21 15:59] LABS: RBC Urine 0-2 (0-2); Squamous Epithelial Cell Urine Few (None-Few); WBC Urine 0-2 (0-5)
--- NOTE | 2023-06-21 16:06 | PC.SOCIAL ---
Social work: Received call from Teresa Vines [facility] Vulnerable Adult Worker, stating that she has received a report of unsafe living conditions at home. Teresa plans to follow up with the patient and requested to be notified if she is admitted. welfare eligibility worker to follow up as needed.
[2023-06-21 16:24] LABS: Creatine Kinase* 90 U/L (41-117)
--- NOTE | 2023-06-21 17:24 | CT_ITS ---
Patient: ANH HERNANDEZ Facility:?[facility] Patient ID:?[id number] Site Patient ID:?[id number]. Site :?[id number] Study:?CT-Head W/O-06/21/2023 6:01:03 PM Ordering Physician:DEBRA Final Report: Indication : Ataxia. Technique : CT of the brain without intravenous contrast. Comparison: None relevant available at the time of interpretation. Findings: Portions of the examination are suboptimal due to patient motion. No acute blurring of the duque-white differentiation. There is no intracranial hemorrhage. Asymmetric prominence of the temporal horn of the right lateral ventricle. There is asymmetric volume loss of the medial right temporal lobe. The 4th ventricle is midline. Basal cisterns appear patent. No abnormal extra- axial fluid collection identified. Mild parenchymal volume loss. There is mild patchy periventricular hypodensity, favored to represent chronic ischemic microvascular disease. There is no intracranial mass, mass effect or midline shift identified. No depressed calvarial fracture. Impression: 1. No acute intracranial process. 2. Mild chronic ischemic microvascular disease. 3. Nonspecific asymmetric volume loss of the medial right temporal lobe. Please note that all CT scans at this facility use dose modulation, iterative reconstruction, and/or weight-based dosing when appropriate to reduce radiation dose to as low as reasonably achievable. Dictated by Elvin Nunez MD @ 06/21/2023 7:04:43 PM Signed by:?Elvin Nunez MD @06/21/2023 7:04:43 PM (Electronic Signature)
--- NOTE | 2023-06-21 18:01 | XR_ITS ---
Patient: ANH HERNANDEZ Facility:?[facility] Patient ID:?[id number] Site Patient ID:?[id number]. Site :?[id number] Study:?XRay-Knee Left 3V-06/21/2023 6:26:32 PM Ordering Physician:DEBRA Final Report: INDICATION: Knee pain COMPARISON: None. TECHNIQUE: Three views left knee FINDINGS: No fracture. Normal alignment. Knee arthroplasty with components in good position. No loosening or subsidence. No periprosthetic fracture. No focal bone lesions. Normal bone mineralization. Soft tissues are normal. No knee joint effusion. No foreign body. IMPRESSION: Left knee arthroplasty. No complications or acute findings seen. Dictated by Mary Hunt MD @ 06/21/2023 7:28:24 PM Signed by:?Mary Hunt MD @06/21/2023 7:28:24 PM (Electronic Signature)
--- NOTE | 2023-06-21 18:04 | P.IMHP_ITS ---
Hospitalist- H&P: CAMPBELL History of Present Illness Date Seen: 06/21/23 Chief complaint: Weakness Narrative: Apoorva Fuentes is a 78 year old female admitted to the hospital through the emergency department when her friend and social media specialist became concerned that she would be unable to take care of herself. She has been quite weak. She tells me she has had difficulty with walking due to weakness and poor balance. She was found at home, unable to get out of bed, incontinent of bowel and bladder. Patient is unable to tell me any significant details of her past history. She does not know how long she has had problems with incontinence or weakness or poor balance. She tells me she has had some falls when she tries to walk with her walker and his bruised her right ribs and her left knee. She reports she falls down because her legs are too weak to hold her up but she also thinks she has a balance problem. She reports generalized, not focal weakness. She has not had recent illness. She specifically denies cold, cough, fever, sore throat, chest pain other than her rib pain on the right side. She has not had trouble breathing. She reports she has been eating normally and has a normal appetite. She has had no abdominal pain. She reports she has had some diarrhea or loose stools but unable to quantify for how much or for how long. She is not aware of blood in her stool. She has a history of gastric bypass in 2008. She has been taking a multivitamin and folic acid tablet daily. She was previously on vitamin B12 supplements until about 10 years ago. She is getting regular injections. Her chart indicates an allergy to niacin. She has not had any headache or visual disturbance. She reports no alteration in her sensation, paresthesias or numbness. He she does not feel that her coordination is gotten any worse except for poor balance. She reports that she rarely drinks alcohol, less than once a month. No recreational drug use. She has chronic depression but reports that her mood has been fairly good. She has been on lifelong antidepressants but has no current concerns about her mood or her health status. Review of Systems Narrative: Patient reports that she has been doing quite well except for her weakness, inability to walk and recent falls. Her only pain is in her right lower ribs and left knee. She is unable to tell me when her injuries to her ribs or knee occurred. [facility] Medical History (Updated 06/21/23 @ 18:29 by Devonte Rodriguez MD) Discharge planning issues ?Z02.9 - Encounter for administrative examinations, unspecified (ICD-10) Nutritional deficiency ?E63.9 - Nutritional deficiency, unspecified (ICD-10) Cognitive impairment ?R41.89 - Other symptoms and signs involving cognitive functions and awareness (ICD-10) Pulmonary embolism ?I26.99 - Other pulmonary embolism without acute cor pulmonale (ICD-10) Positive WILLOW (antinuclear antibody) ?R76.8 - Other specified abnormal immunological findings in serum (ICD-10) Restless leg ?G25.81 - Restless legs syndrome (ICD-10) Pyelonephritis ?N12 - Tubulo-interstitial nephritis, not specified as acute or chronic (ICD- 10) Urinary retention ?R33.9 - Retention of urine, unspecified (ICD-10) BRITNEY (obstructive sleep apnea) ?G47.33 - Obstructive sleep apnea (adult) (pediatric) (ICD-10) Asthma ?J45.909 - Unspecified asthma, uncomplicated (ICD-10) PTSD (post-traumatic stress disorder) ?F43.10 - Post-traumatic stress disorder, unspecified (ICD-10) Major depressive disorder, recurrent episode ?F33.9 - Major depressive disorder, recurrent, unspecified (ICD-10) Acute delirium ?R41.0 - Disorientation, unspecified (ICD-10) 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 antibiotic-impregnated cement spacer ?Z89.529 - Acquired absence of unspecified knee (ICD-10) Stenosis of cervical spine ?M48.02 - Spinal stenosis, cervical region (ICD-10) Rhabdomyolysis ?M62.82 - Rhabdomyolysis (ICD-10) Adenomatous colon polyp ?D12.6 - Benign neoplasm of colon, unspecified (ICD-10) Esophageal reflux ?K21.9 - Gastro-esophageal reflux disease without esophagitis (ICD-10) Controlled type 2 diabetes mellitus with complication, without long-term current use of insulin ?E11.8 - Type 2 diabetes mellitus with unspecified complications (ICD-10) Vitamin B12 deficiency ?E53.8 - Deficiency of other specified B group vitamins (ICD-10) Hypothyroidism ?E03.9 - Hypothyroidism, unspecified (ICD-10) Hyperlipidemia ?E78.5 - Hyperlipidemia, unspecified (ICD-10) SVT (supraventricular tachycardia) ?I47.1 - Supraventricular tachycardia (ICD-10) Heart failure with preserved ejection fraction ?I50.30 - Unspecified diastolic (congestive) heart failure (ICD-10) DVT (deep venous thrombosis) ?I82.409 - Acute embolism and thrombosis of unspecified deep veins of unspecified lower extremity (ICD-10) Hypertension ?I10 - Essential (primary) hypertension (ICD-10) Surgical History History of total left knee replacement ?Z96.652 - Presence of left artificial knee joint (ICD-10) History of total right knee replacement ?Z96.651 - Presence of right artificial knee joint (ICD-10) S/P total right hip arthroplasty ?Z96.641 - Presence of right artificial hip joint (ICD-10) S/P total left hip arthroplasty ?Z96.642 - Presence of left artificial hip joint (ICD-10) Status post revision of total replacement of right knee ?Z96.651 - Presence of right artificial knee joint (ICD-10) Hx of gastric bypass ?Z98.84 - Bariatric surgery status (ICD-10) Family History (Updated 06/21/23 @ 18:13 by Devonte Rodriguez MD) Mother Diabetes Father Diabetes Stroke Social History (Updated 06/21/23 @ 18:14 by Devonte Rodriguez MD) Narrative: She lives in an apartment with her friend Roberto. She has never been a smoker. She rarely drinks alcohol. No recreational drug use. Code status is DNR. Healthcare power of assistant city attorney is her brother, Chino Fuentes, of [place] What is your current living situation?: I have a place to live at present, but am concerned about future Problems where you live: no known problems Problems where you live details: none In the past 12 months, utilities in danger of being shut off: no In past 12 months, lack of transportation kept you from medical appts, meetings, work, or getting things needed for daily living: no In the past 12 mos, have been you worried that your food would run out before you had money to buy more?: never true In the past 12 mos, the food you bought just didn't last and you didn't have money to buy more?: never true Highest level of school completed/degree received: Doctoral degree Smoking Status: Never smoker Do you use any of these nicotine containing products: None How often do you have a drink containing alcohol: monthly or less AUDIT-C Alcohol total score: 1 Non-prescribed substance use: denies use Caffeine: Yes How often does anyone, including family, friends and others, physically hurt you : never How often does anyone, including family, friends and others, insult or talk down to you: never How often does anyone, including family, friends and others, threaten you with harm: never How often does anyone, including family, friends and others, scream or curse at you: never service: No Meds Home Medications and Allergies Home Medications Medication Instructions Recorded Confirmed Type atorvastatin 20 mg tablet mg 06/04/22 History atorvastatin 40 mg tablet mg 06/04/22 History cetirizine 10 mg tablet mg 06/04/22 History folic acid 1 mg tablet 06/04/22 History gabapentin 300 mg capsule mg 06/04/22 History levothyroxine 137 mcg tablet mcg 06/04/22 History sertraline 100 mg tablet mg 06/04/22 History trazodone 100 mg tablet mg 06/04/22 History Allergies Allergy/AdvReac Type Severity Reaction Status Date / Time adhesive tape Allergy Verified 06/04/22 23:36 amoxicillin Allergy Verified 06/04/22 23:36 benzocaine Allergy Verified 06/04/22 23:36 bupropion Allergy Verified 06/04/22 23:36 carbidopa Allergy Verified 06/04/22 23:36 cimetidine Allergy Verified 06/04/22 23:36 ketoconazole Allergy Verified 06/04/22 23:36 kiwi Allergy Swelling Verified 06/04/22 23:36 of Lip/Tongue/Throat levodopa Allergy Verified 06/04/22 23:36 niacin Allergy Verified 06/04/22 23:36 NSAIDS (Non-Steroidal Allergy Verified 06/04/22 23:36 Anti-Inflamma Sulfa (Sulfonamide Allergy Verified 06/04/22 23:36 Antibiotics) terfenadine Allergy Verified 06/04/22 23:36 theophylline [From Esvin-Dur] Allergy Verified 06/04/22 23:36 carbidopa-levodopa Allergy Uncoded 06/04/22 23:36 lanolin oil Allergy Uncoded 06/04/22 23:36 Exam Narrative: Exam Narrative: She is alert pleasant and in no distress. She gives her own history. She remembers her medications fairly well but unable to give any details of recent events. She is unaware of how long she has been in the hospital thinking it has been a few days. She was just admitted this afternoon. Head is without obvious trauma. Eyes are normal. Pupils are equal round reactive to light. Bilateral cataracts noted. Visual damian are intact. There is no facial asymmetry. Oropharynx with significant dental decay and dental loss. She has gingivitis. Neck is supple without mass or adenopathy. Respirations are clear to auscultation. No wheezing rales or rhonchi. Cardiovascular: S1, S2, regular rate and rhythm. 1/6 systolic murmur heard best at the right upper sternal border. No gallop or rub. Abdomen: Bowel sounds active. Abdomen is soft with out significant tenderness. No mass. She has minimal tenderness with palpation over her right costal margin at the right anterior axillary line. No obvious bruising or deformity. No liver tenderness. External genitalia normal. Upper extremities without obvious muscle atrophy or fasciculations. Reflexes are 1/4 at the biceps and brachia radialis bilaterally. Strength is 5/5 in all tested muscle groups, shoulder flexion extension, elbow flexion extension, wrist flexion extension, finger extension and joint setter strength. She has intact sensation to soft touch on her upper extremities. [id number] is accurate. No tremor. Lower extremities with no obvious muscle atrophy. Bilaterally surgical scars on both knees suggestive of knee arthroplasty. She has mild swelling around her left knee without redness or bruising. Palpation over the anterior left knee is diffusely tender. She tolerates range of motion in both knees fairly well. She has mild diffuse weakness in her lower extremities with hip flexion and ankle dorsiflexion and plantar flexion and great toe dorsiflexion. Right knee has normal flexion extension strength. Left knee has 4 over 5 strength in flexion extension with some discomfort. Deep tendon reflexes 1/4 at the Achilles and patella. Intact sensation to soft touch bilaterally. Const: Vital Signs, click to edit/add: Vital Signs - 24 hr 06/21/23 11:09 06/21/23 11:50 06/21/23 15:43 Temperature 97.4 F L Pulse Rate [Pulse Oximeter] 84 83 82 Respiratory Rate 18 18 18 Blood Pressure [Ri ght Arm] Blood Pressure [Ri ght Upper Arm] 127/68 139/61 150/67 H Pulse Oximetry 99 100 98 Oxygen Delivery Me thod Room Air Room Air 06/21/23 16:55 06/21/23 17:00 Temperature 97.5 F L Pulse Rate [Pulse Oximeter] 73 Respiratory Rate 16 16 Blood Pressure [Ri ght Arm] 147/62 H Blood Pressure [Ri ght Upper Arm] Pulse Oximetry 99 99 Oxygen Delivery Me thod Room Air Room Air Documenting provider has reviewed patient's vital signs: yes Hospitalist - H&P: Result Labs Labs: Short CBC 06/21/23 Range/Units 13:40 WBC 7.31 (4.50-11.00) K/uL Hgb 15.5 (12.0-16.0) gm/dL Hct 47.8 (33.0-51.0) % Plt Count 295 (140-440) K/uL BMP 06/21/23 13:40 Sodium 139 Potassium 5.2 H Chloride 106 Carbon Dioxide 12 L BUN 27 Creatinine 0.7 Glucose 77 Calcium 10.0 Cardiac Enzymes 06/21/23 Range/Units 13:40 Total Creatine Kinase 90 (41-117) U/L Liver Function 06/21/23 Range/Units 13:40 Total Bilirubin 0.8 (0.1-1.5) mg/dL Direct Bilirubin 0.5 (0.0-0.5) mg/dL AST 31 (12-35) U/L ALT 15 (4-35) U/L Alkaline Phosphatase 105 (40-150) U/L Albumin 4.6 (3.3-5.0) g/dL Urine 06/21/23 Range/Units 15:35 Urine Color Yellow (Yellow) Urine Appearance Turbid A (Clear) Urine pH 5.5 (5.0-8.5) Ur Specific [place] >= 1.030 (1.000-1.030) Urine Protein Negative (Negative) Urine Glucose (UA) Negative (Negative) Assessment and Plan Assessment and plan (1) Cognitive impairment: Problem comment: Patient has marked inability to give history of recent events. Concern for chronic neurologic problem Status: Acute (2) Weakness: Problem comment: Appears to be generalized. Further evaluation to determine if this is a problem with deconditioning or neuro muscular weakness or other neurologic problem or all of the above Status: Acute (3) Major depressive disorder, recurrent episode: Problem comment: She appears to be fairly well managed with her depression signs and symptoms. Does not appear to be the primary cause of her current disability Status: Acute (4) Vitamin B12 deficiency: Problem comment: Post gastric bypass surgery. Not on replacement. Check B12 levels and replace. Status: Acute (5) Nutritional deficiency: Problem comment: Patient likely has some nutritional deficits from gastric bypass surgery and probable inadequate replacement with supplements. Check B12, vitamin-D, thiamin, iron. Status: Acute (6) Hypothyroidism: Problem comment: TSH is borderline suppressed. Reduce levothyroxine dose from 150-137 mcg per day Status: Acute (7) Left knee pain: Problem comment: Apparently had fall on her left knee at some point. Now reporting pain with ambulation. Obtain plain x-rays. Previous knee arthroplasty bilaterally in 2009 Status: Acute (8) Neurological disorder: Problem comment: Patient appears to have a progressive neuromuscular disorder. This could be due to nutritional deficiencies after gastric bypass or due to a progressive neurologic disorder. If nutritional studies are normal may need neurologic consultation for further evaluation. Obtain head CT today. MRI? Status: Acute (9) Discharge planning issues: Problem comment: Patient's friend and social media specialist indicate that she is no longer able to live independently and take care of herself. Will need placement in retirement facility pending a treatable nutritional or neurologic problem. Status: Acute Plan Patient is admitted to the hospital for evaluation of profound neurologic deficits including impaired memory, weakness, poor balance or ataxia with falls. Cause for this is not entirely clear. Nutritional deficits from gastric bypass and other neuromuscular conditions would be leading considerations. Consider neurology consult. Admit for evaluation management as well as engage director of social services for discharge planning.
--- NOTE | 2023-06-21 18:25 | PC.NURSE ---
End of Shift: Patient pleasant and cooperative, arrived to the floor about 1655. Patient vitally stable, lungs clear, BS WNL, IV SL. Patient denies pain and able to slightly move independently in bed. Patient is not motivated to be mobile. Patient has not urinated or had a BM since admission. Patient tolerating regular diet.
[2023-06-21] MEDS: TRAZODONE HCL 50 MG TABLET 100 MG PO (22:27)
[2023-06-21] MEDS: MELATONIN 3 MG TABLET PO (22:28)
[2023-06-21] MEDS: ATORVASTATIN CALCIUM 40 MG TABLET PO (22:28)
[2023-06-21] MEDS: SODIUM CHLORIDE 0.9 % (FLUSH) 10 ML SYRINGE 5 ML IVF (22:28)
[2023-06-21] MEDS: SERTRALINE 100 MG TABLET PO (22:28)
[2023-06-21] MEDS: ENOXAPARIN 40 MG/0.4 ML INJ SUBCUT (22:28)
[2023-06-21] MEDS: GABAPENTIN 300 MG CAPSULE PO (22:32)
[2023-06-21] MEDS: MULTIVITAMIN/MINERALS 1 TABLET 1 TAB PO (22:32)
[2023-06-21] MEDS: CHLORHEXIDINE GLUCONATE 473 ML MOUTHWASH 15 ML SWISH/SPIT (23:49)
[2023-06-22] VITALS (7 sets, daily range): BP systolic 111–144; BP diastolic 50–62; PULSE 92–102; RESP 14–20; TEMP 36.6–36.9; O2SAT 96–100
[2023-06-22 06:37] LABS: Iron* 106 ug/dL (37-170)
[2023-06-22 06:46] LABS: Percent Iron Saturation 48 % (20-50); Total Iron Binding Capacity 220 ug/dL (265-497)
[2023-06-22 06:55] LABS: Vitamin D 25 Hydroxy* 56 ng/mL (30-80)
[2023-06-22] MEDS: LEVOTHYROXINE 25 MCG TABLET PO (06:55)
[2023-06-22] MEDS: LEVOTHYROXINE 112 MCG TABLET PO (06:55)
[2023-06-22 07:15] LABS: Ferritin* 83.9 ng/mL (11.1-264.0)
[2023-06-22 07:27] LABS: Vitamin B12* 445 pg/mL (243-894)
[2023-06-22] MEDS: MULTIVITAMIN/MINERALS 1 TABLET 1 TAB PO ×2 (08:37→20:46)
[2023-06-22] MEDS: GABAPENTIN 300 MG CAPSULE PO ×3 (08:37→20:46)
[2023-06-22] MEDS: SODIUM CHLORIDE 0.9 % (FLUSH) 10 ML SYRINGE 5 ML IVF ×2 (08:38→19:51)
[2023-06-22] MEDS: THIAMINE 100 MG TABLET 500 MG PO (08:38)
[2023-06-22] MEDS: CYANOCOBALAMIN (VITAMIN B-12) 500 MCG TABLET 1000 MCG PO (08:38)
[2023-06-22] MEDS: CHLORHEXIDINE GLUCONATE 473 ML MOUTHWASH 15 ML SWISH/SPIT ×4 (08:38→20:46)
[2023-06-22] MEDS: FOLIC ACID 1 MG TABLET PO (08:38)
--- NOTE | 2023-06-22 08:48 | PC.NURSE ---
Pt alert and oriented to self and place but has difficulties with time. Afebrile. Pt denies pain, chest pain, SOB, N/V. Pt repositions independently in bed. Pt refused to sit in chair for dinner and did not eat tray ordered but did eat chocolate ice cream. Meplex was place on pt's coccyx to protect against shearing. Pt reported to RN when she voids but doesn't want to get up but will turn in bed to change brief. Pt slept throughout most of night. Pt did not have BM.
--- NOTE | 2023-06-22 10:28 | MR_ITS ---
Patient: ANH HERNANDEZ Facility:?[facility] Patient ID:?[id number] Site Patient ID:?[id number] Site :?[id number] Study:?MRI-Head W/O-06/22/2023 11:57:24 AM Ordering Physician:ALFIE RICHARDSON Final Report: INDICATION: Progressive weakness. TECHNIQUE: Multiplanar multisequence noncontrast MR images of the brain. COMPARISON: CT brain 06/21/2023. FINDINGS: Prominence of the ventricles and sulci compatible with mild diffuse cerebral volume loss. No mass effect or midline shift. Scattered punctate FLAIR hyperintensities in the supratentorial white matter, typical for mild chronic microvascular ischemic changes. Chronic lacunar infarction or atypical perivascular space right temporal stem. No diffusion restriction to suggest acute infarction. No intracranial hemorrhage or pathologic extra-axial fluid collection. The major arterial flow voids of the skullbase are preserved. Hyperostosis frontalis interna. The globes are symmetric. Mild ethmoid sinus mucosal thickening. Minimal right mastoid fluid. IMPRESSION: 1. No acute infarction, mass effect, or intracranial hemorrhage. 2. Mild chronic microvascular ischemic changes and diffuse cerebral volume loss. Dictated by Lauri Roy MD @ 06/22/2023 12:10:01 PM Signed by:?Lauri Roy MD @06/22/2023 12:10:01 PM (Electronic Signature)
[2023-06-22] MEDS: 0.9 % SODIUM CHLORIDE 250 ml IV (12:00)
[2023-06-22] MEDS: THIAMINE 500 MG in 0.9 % SODIUM CHLORIDE 100 ml 100 ML 105 MG IVPB ×2 (12:02→19:50)
--- NOTE | 2023-06-22 12:17 | PC.SOCIAL ---
Addendum entered by FATOUMATA Eric 06/22/23 16:20: [facility] is requesting pt arrive tomorrow before 2:00pm. Addendum entered by FATOUMATA Eric 06/22/23 16:05: Pt has been accepted for admit to a rehab bed at [facility] at discharge. If detention care is needed after discharge, pt can move into a shared detention care bed. Met with pt who is aware and agrees with this plan. social worker school to follow up as needed. Original Note: Discharge plan: Met with pt who is requesting placement at [facility] at discharge. Pt states she has been there before for short term rehab and it was a good experience. Called and secure emailed information to [facility] for evaluation for admit. social worker school to follow up as needed.
--- NOTE | 2023-06-22 16:27 | P.IMPN_ITS ---
Progress Note: A&P Assessment and plan (1) Neurological disorder: Problem details: Patient admitted with concern for progressive neuromuscular disorder vs severe deconditioning. This could be due to nutritional deficiencies after gastric bypass or due to a progressive neurologic disorder. Head CT without obvious etiology. Discussed with neurology and multiple serum studies are pending. B12, Vit D both WNL. Pending labs include: A1C, SPEP, copper, ceruloplasmin, Vit E, Vit B1, B6, WILLOW, CRP, ESR, HIV, Free T4, lyme, treponema, MMA, ANCA, rheumatoid factor. Appreciate neuro consult. -Continue with PT/OT -Likely to require placement, social media sr strategy manager appreciated -Follow up multiple pending labs Status: Acute (2) Discharge planning issues: Problem details: Patient's friend and certified social workers in health care indicate that she is no longer able to live independently and take care of herself. Will need placement in senior care facility pending a treatable nutritional or neurologic problem. Status: Acute (3) Nutritional deficiency: Problem details: Patient likely has some nutritional deficits from gastric bypass surgery and probable inadequate replacement with supplements. Check B12, vitamin-D, thiamin, iron. -Currently on IV thiamine protocol Status: Acute (4) Cognitive impairment: Problem details: Patient initially had marked inability to give history of recent events, but rapidly improved with minimal intervention. Concern for chronic neurologic problem -OT Status: Acute (5) Weakness: Problem details: Appears to be generalized. Further evaluation to determine if this is a problem with deconditioning or neuro muscular weakness or other neurologic problem or all of the above Status: Acute (6) Adult failure to thrive: Status: Acute (7) Major depressive disorder, recurrent episode: Problem details: She appears to be fairly well managed with her depression signs and symptoms. Does not appear to be the primary cause of her current disability Status: Acute (8) Controlled type 2 diabetes mellitus with complication, without long-term current use of insulin: Problem details: A1C pending Status: Acute (9) Heart failure with preserved ejection fraction: Problem details: No current issues Status: Acute (10) Hypertension: Problem details: Accepttable currently Status: Acute (11) Vitamin B12 deficiency: Problem details: Post gastric bypass surgery. Not on replacement. Check B12 levels and replace. Status: Acute Subjective Date Seen: 06/22/23 Interval history: Patient is seen and examined. She is feeling a little better this am. She is reporting to me that her weakness and falls have been getting worse for a few weeks. Denies much in the way of sensory changes. No recent illnesses. We discussed her living situation and how she has been managing food and medications recently. She has been keeping most of her medications at her bedside, but notes that she has been out of her supplemental vitamins for a long time. She has lost significant weight and has not been leaving her home in quite some time. She reports that her roommate has been very helpful with preparing meals and helping her out at home. Exam: General: No distress HEENT: EOMI, poor dentition Resp: CTAB CV: RRR, no m/g/r Neuro: Awake, alert and oriented. CN III-XI grossly intact, no tongue fasciculations, no asterixis, strength appears to be 4/5 throughout upper and lower extremities, sensation to light touch in tact. Exam Const: Vital Signs, click to edit/add: Vital Signs - 24 hr 06/21/23 16:55 06/21/23 17:00 06/21/23 19:00 Temperature 97.5 F L 97.7 F Pulse Rate [Pulse Oximeter] 73 84 Respiratory Rate 16 16 18 Blood Pressure [Ri ght Arm] 147/62 H 145/53 H Pulse Oximetry 99 99 100 Oxygen Delivery Me thod Room Air Room Air Room Air 06/21/23 23:00 06/22/23 04:50 06/22/23 08:31 Temperature 97.9 F 97.8 F 98 F Pulse Rate [Pulse Oximeter] 89 92 95 Respiratory Rate 16 16 14 Blood Pressure [Ri ght Arm] 138/57 L 129/50 L 127/61 Pulse Oximetry 99 98 100 Oxygen Delivery Me thod Room Air Room Air Room Air 06/22/23 08:31 06/22/23 11:06 06/22/23 15:42 Temperature 98.1 F 98 F Pulse Rate [Pulse Oximeter] 95 102 H 92 Respiratory Rate 14 20 20 Blood Pressure [Ri ght Arm] 125/56 L 144/60 H Pulse Oximetry 100 99 Oxygen Delivery Me thod Room Air Room Air 06/22/23 15:42 Temperature Pulse Rate [Pulse Oximeter] 92 Respiratory Rate 20 Blood Pressure [Ri ght Arm] Pulse Oximetry Oxygen Delivery Me thod Labs Labs: Laboratory Results - last 24 hr 06/21/23 06/22/23 13:40 05:51 Iron 106 TIBC 220 L % Saturation 48 Ferritin 83.9 Total Creatine Kinase 90 Vitamin B12 445 25-OH Vitamin D Total 56
[2023-06-22 18:23] LABS: Erythrocyte SedimentationRate* 13 mm/hr (2-20)
--- NOTE | 2023-06-22 18:29 | PC.NURSE ---
End of Shift: Patient pleasant and cooperative, oriented to self, place, situation. Patient vitally stable, lungs clear, BS WNL, IV intact and SL. Patient was 2 assist with walker to chair. Patient had two very wet briefs this shift and no BM. Patient was up in chair for about half the shift today. Patient tolerating regular diet, only had breakfast and dinner and will snack on food for a long time. Patient denies pain.
[2023-06-22 20:40] LABS: Hemoglobin A1C* 5.4 % (0-5.6)
[2023-06-22] MEDS: ENOXAPARIN 40 MG/0.4 ML INJ SUBCUT (20:43)
[2023-06-22] MEDS: ATORVASTATIN CALCIUM 40 MG TABLET PO (20:45)
[2023-06-22] MEDS: TRAZODONE HCL 50 MG TABLET 100 MG PO (20:45)
[2023-06-22] MEDS: SERTRALINE 100 MG TABLET PO (20:45)
[2023-06-22 21:34] LABS: Free T4 Free Thyroxine* 1.23 ng/dL (0.70-1.85); HIV 1/2/P24 Combo Screen* Negative (Negative)
[2023-06-22 21:34] LABS: C Reactive Protein* < 0.5 mg/dL (0.5-1.0)
[2023-06-23 02:40] VITALS: BP 114/73; PULSE 101; RESP 16; TEMP 36.9; O2SAT 97
[2023-06-23] MEDS: THIAMINE 500 MG in 0.9 % SODIUM CHLORIDE 100 ml 100 ML 105 MG IVPB (03:43)
--- NOTE | 2023-06-23 05:09 | PC.NURSE ---
Pt pleasant and rested well this night. Afebrile. Pt unmotivated to move out of bed. Reporting zero pain.
[2023-06-23] MEDS: LEVOTHYROXINE 112 MCG TABLET PO (06:05)
[2023-06-23] MEDS: LEVOTHYROXINE 25 MCG TABLET PO (06:05)
[2023-06-23 07:00] VITALS: BP 124/64; PULSE 93; RESP 20; TEMP 36.6; O2SAT 94
[2023-06-23] MEDS: FOLIC ACID 1 MG TABLET PO (09:10)
[2023-06-23] MEDS: CHLORHEXIDINE GLUCONATE 473 ML MOUTHWASH 15 ML SWISH/SPIT (09:10)
[2023-06-23] MEDS: MULTIVITAMIN/MINERALS 1 TABLET 1 TAB PO (09:10)
[2023-06-23] MEDS: GABAPENTIN 300 MG CAPSULE PO (09:10)
[2023-06-23] MEDS: CYANOCOBALAMIN (VITAMIN B-12) 500 MCG TABLET 1000 MCG PO (09:10)
--- NOTE | 2023-06-23 09:26 | PM.DS1 ---
DS: Providers Provider Date Seen: 06/23/23 Date of admission: 06/21/23 16:43 Primary care physician: Madelin Lozano MD Admitting Clinician: Milagros Burks MD Consults: 06/21/23 11:17 Consult to Technical Coordinator [CONS] Urgent Comment: Reason for Consult:: Possible SNF placement 06/21/23 17:46 Consult to Occupational Therapy [CONS] Routine Comment: Reason(s) for OT Consult:: Evaluate and Treat Any Restrictions?:: No Restrictions Consult to Physical Therapy [CONS] Routine Comment: Reason(s) for PT Consult:: Evaluate and Treat Any Restrictions?:: No Restrictions Consult to Technical Coordinator [CONS] Routine Comment: Reason for Consult:: Discharge Planning Needs Attending Physician on discharge: Jovana Manrique MD Date of Discharge: 06/23/23 DS: Diagnosis Discharge Diagnosis (1) Neurological disorder: Status: Acute Problem details: Patient admitted with concern for progressive neuromuscular disorder vs severe deconditioning. This could be due to nutritional deficiencies after gastric bypass or due to a progressive neurologic disorder. Head CT and MRI without obvious etiology. Discussed with neurology and multiple serum studies are pending. B12, Vit D, HgbA1C, CRP, T4 WNL. Pending labs include: SPEP, copper, ceruloplasmin, Vit E, Vit B1, B6, WILLOW, ESR, HIV, lyme, treponema, MMA, ANCA, rheumatoid factor. Appreciate neuro consult (consult note pending). Discussed at length with neurology who felt patient's exam was reassuring and less likely due to inflammatory or nutritional issue. Exam also less consistent with spinal issue, so no MRI of spine was obtained. Could be considered in the future if more focal concerns arise. Patient will discharge to SNF for PT/OT rehabilitation. She will need to follow up with neurology in the coming months and primary care in 1 week. Of note, patient reports that she had not left her home in 2 years and therefore may need to re-establish with primary care. For now, can be followed by SNF attending. -Continue with PT/OT -Follow up multiple pending labs (2) Nutritional deficiency: Status: Acute Problem details: Patient likely has some nutritional deficits from gastric bypass surgery and probable inadequate replacement with supplements. Labs so far reassuring. -Continue vitamin supplements without interruption (3) Weakness: Status: Acute Problem details: Appears to be generalized. Further evaluation to determine if this is a problem with deconditioning or neuro muscular weakness or other neurologic problem or all of the above. Many serologies pending at the time of discharge (4) Dehydration: Status: Acute Problem details: Resolved with IVF (5) Cognitive impairment: Status: Acute Problem details: Patient initially had marked inability to give history of recent events, but rapidly improved with minimal intervention. Concern for chronic neurologic problem -Continue OT at SNF (6) Left knee pain: Status: Acute Problem details: Apparently had fall on her left knee at some point. Now reporting pain with ambulation. Previous knee arthroplasty bilaterally in 2009. XR shows no acute osseous injury. Suspect arthritic flare with recent fall. Continue PT (7) Adult failure to thrive: Status: Acute (8) Major depressive disorder, recurrent episode: Status: Acute Problem details: She appears to be fairly well managed with her depression signs and symptoms. Does not appear to be the primary cause of her current disability (9) Vitamin B12 deficiency: Status: Acute Problem details: Post gastric bypass surgery. Not on replacement. B12 level pending. Continue supplement (10) Hypothyroidism: Status: Acute Problem details: TSH/T4 appropriate. Continue levothyroxine (11) Hypertension: Status: Acute Problem details: Acceptable currently (12) Controlled type 2 diabetes mellitus with complication, without long-term current use of insulin: Status: Acute Problem details: A1C 5.4% (13) Heart failure with preserved ejection fraction: Status: Acute Problem details: No current issues (14) Discharge planning issues: Status: Acute Problem details: Patient's friend and high school social studies teacher indicate that she is no longer able to live independently and take care of herself. Appreciate social media designer assistance with SNF placement. DS: Summary Hospital Course Hospital Course: Patient is a 78-year-old with a past medical history significant for hypertension, hyperlipidemia, type 2 diabetes, HFpEF and status post-bypass surgery who presented to the emergency department with progressive generalized weakness. On her initial presentation, she was unable to provide much history raising concern for potential new neurologic disorder, possibly nutritional deficiencies contributing. She was admitted to the hospital for investigation and further management. She underwent head CT and brain MRI which were fortunately fairly unremarkable. Initial labs and vital signs were reassuring. Patient denied any significant sensory deficits. Overnight, patient was given IV fluids for dehydration and she had improvement in her mental status. She was able to provide a history, reporting that she had not left her apartment in 2 years. Progressive weakness really became unmanageable over the last several weeks. She ambulates in her apartment with a walker and became so weak that she was falling onto her walker. She reports that she did not have access to her vitamin supplements. She had continued with her chronic other medications. She has a roommate at her apartment who cooks for her and helps with taking out garbage. Unfortunately, patient has become too weak to manage at home. She was found in her bed with incontinence. Over her 2 day stay in hospital, patient improved. She was able to stand with her walker and assistance. Patient was evaluated by Neurology who felt her presentation was subacute and exam was somewhat reassuring making severe nutritional deficiency less likely. She was treated initially with IV thiamine, but can continue with oral thiamine at this time. Multiple serologies are pending per Neurology at the time of discharge. Labs which have returned are reassuring. Please see above for details. Patient will need close follow-up with primary care and eventual follow-up with Neurology. She will discharge to custodial facility for further rehabilitation. Status at Discharge Functional status at discharge: uses cane/walker Overall status at discharge: patient is not back to baseline Time Spent with Patient Time attestation: Total time spent providing and/or coordinating discharge services: Time spent: Greater than 30 minutes Exam Narrative: Exam Narrative: Patient was seen examined on the date of discharge. Exam is stable. Const: Vital Signs, click to edit/add: Vital Signs - 24 hr 06/22/23 11:06 06/22/23 15:42 06/22/23 15:42 Temperature 98.1 F 98 F Pulse Rate [Pulse Oximeter] 102 H 92 92 Respiratory Rate 20 20 20 Blood Pressure [Ri ght Arm] 125/56 L 144/60 H Pulse Oximetry 100 99 Oxygen Delivery Me thod Room Air Room Air 06/22/23 19:22 06/22/23 22:15 06/22/23 22:17 Temperature 98.4 F 98.4 F Pulse Rate [Pulse Oximeter] 100 100 100 Respiratory Rate 16 16 16 Blood Pressure [Ri ght Arm] 139/62 111/51 L Pulse Oximetry 100 96 Oxygen Delivery Me thod Room Air Room Air 06/23/23 02:40 06/23/23 07:00 06/23/23 07:00 Temperature 98.4 F 97.8 F Pulse Rate [Pulse Oximeter] 101 H 93 93 Respiratory Rate 16 20 20 Blood Pressure [Ri t Arm] 114/73 124/64 Pulse Oximetry 97 94 Oxygen Delivery Me thod Room Air Room Air DS: Data Data Completed and Pending Labs on day of discharge: Labs from last 24 hours 06/22/23 06/22/23 06/22/23 16:23 16:12 05:53 ESR 13 Hemoglobin A1c 5.4 C-Reactive Protein < 0.5 L Ceruloplasmin Pending Whole Bld Vitamin B6 Pending Alpha-Tocopherol Vit E Pending Gamma-Tocopherol Vit E Pending Free T4 1.23 HIV 1&2 Ab/P24 Ag 4thGn Negative Preliminary micro results at discharge 06/21/23 13:40 Blood Culture - Preliminary Blood NO GROWTH AFTER 24 HOURS 06/21/23 13:40 Blood Culture - Preliminary Blood NO GROWTH AFTER 24 HOURS Discharge Plan Discharge Disposition: [facility] Date of Admission: 06/21/23 16:43 Attending Provider on Discharge: Jovana Manrique Primary Care Provider: Madelin Lozano I Condition: Improved Discharge Medications: New sertraline 100 mg Tablet 100 mg PO HS Qty: 30 0RF melatonin 3 mg Tablet 3 mg PO HS PRNQty: 30 0RF cyanocobalamin (vitamin B-12) [Vitamin B-12] 500 mcg Tablet 1,000 mcg PO DAILY Qty: 30 0RF chlorhexidine gluconate 0.12 % Mouthwash 15 ml SWISH/SPIT QID Qty: 900 0RF cholecalciferol (vitamin D3) 25 mcg (1,000 unit) Tablet 25 mcg PO DAILY Qty: 30 0RF multivitamin with folic acid [Thera] 400 mcg Tablet 1 tab PO BID Qty: 60 0RF thiamine HCl (vitamin B1) 500 mg tablet 500 mg PO BID Qty: 60 0RF Continued atorvastatin 40 mg tablet 40 mg PO QPM levothyroxine 137 mcg tablet 137 mcg PO DAILY trazodone 100 mg tablet 100 mg PO HS gabapentin 300 mg capsule 300 mg PO TID folic acid 1 mg tablet 1 mg PO DAILY Discontinued sertraline 100 mg tablet 200 mg PO HS Discharge Orders: Discharge Order (Routine); Ordered 06/23/23 Ordered By: Jovana Manrique Activity Level: Activity as Tolerated Discharge Diet: Regular Follow Up Appointments: Madelin Lozano MD [Primary Care Provider] - Sejal Ledesma MD [Referring] - Forms: [facility] Info Instructions Admit to: SNF Discharge Potential: Fair Length of Stay: 30-90 days Can use facility standing orders?: Yes Code Status: DNR Rehab Potential: Good Therapy: Physical Therapy and Occupational Therapy Therapy Orders: Evaluate and Treat Oxygen: No Urinary Catheter: No Orders are good >30 days: Yes Signature: Jovana Manrique MD
--- NOTE | 2023-06-23 10:16 | PC.NURSE ---
Have now left two messages at the [facility] to give nurse to nurse report on this patient that is transferring care to them.
--- NOTE | 2023-06-23 11:03 | PC.NURSE ---
Discharge Note: Patient was discharged to the [facility]. Nurse to Nurse report was given. Patient was transported by EMS. She may have a little mild cognition and for safety was transported by EMS.
--- NOTE | 2023-06-23 11:57 | PC.SOCIAL ---
Late Entry: Met with pt this morning who is pleased with discharge plan to [facility] for short term rehab stay. PAS completed and submitted PAS#[id number]. Discharge orders sent and confirmed receipt of all required information from pharmacy operations coordinator, Leann. Pt to transport by non-emergency transportation at her request. Teresa Vines at [facility] updated on discharge plan.
[2023-06-25 00:53] LABS: Copper, Serum/Plasma 107.7 ug/dL (80.0-155.0)
[2023-06-25 01:58] LABS: Anti-Nuclear Ab(ANA)IgG ELISA Detected (None Detected)
[2023-06-25 02:45] LABS: Ceruloplasmin 25 mg/dL (16-45)
[2023-06-25 03:32] LABS: Rheumatoid Factor <10 IU/mL (0-14)
[2023-06-26 08:33] LABS: Lyme ELISA Reflex 0.12 IV (<=0.90)
[2023-06-26 12:34] LABS: Albumin 3.73 g/dL (3.75-5.01); Alpha 1 Globulin 0.35 g/dL (0.19-0.46); Alpha 2 Globulin 0.93 g/dL (0.48-1.05); Total Protein, Serum 6.4 g/dL (6.3-8.2)
[2023-06-26 12:49] LABS: Vitamin B6 (Pyridoxal 5-Phos) 21.6 nmol/L (20.0-125.0)
[2023-06-26 14:03] LABS: ANCA IFA Pattern None Detected (None Detected); ANCA IFA Titer <1:20 (<1:20); Myeloperoxidase (MPO) Ab, IgG 0 AU/mL (0-19); Serine Proteinase 3 Ab IgG 8 AU/mL (0-19)
[2023-06-26 15:46] LABS: Antinuclear AntibodyHEp-2 <1:80 (<1:80)
[2023-06-28 07:21] LABS: Vitamin B1, Whole Blood 131 nmol/L (70-180)
[2023-06-28 07:28] LABS: MMA Vitamin B12 Status 0.19 umol/L (0.00-0.40)
== END 2023-06-23 10:59 ==
LOC: ED 16:22 → MEDSURG 16:44
PROVIDERS: Family Medicine; Admitting Provider Family Medicine; Emergency Provider Family Medicine; PCP Family Medicine; Visit Provider Family Medicine
DX: R53.1 Weakness (principal); R62.7 Adult failure to thrive; E86.0 Dehydration; R41.89 Other symptoms and signs involving cognitive functions and awareness; G98.8 Other disorders of nervous system; E63.9 Nutritional deficiency, unspecified; E53.8 Deficiency of other specified B group vitamins; M25.562 Pain in left knee; F33.9 Major depressive disorder, recurrent, unspecified; E78.5 Hyperlipidemia, unspecified; E03.9 Hypothyroidism, unspecified; I11.0 Hypertensive heart disease with heart failure; I50.31 Acute diastolic (congestive) heart failure; E11.8 Type 2 diabetes mellitus with unspecified complications; Z74.09 Other reduced mobility; G47.33 Obstructive sleep apnea (adult) (pediatric); J45.909 Unspecified asthma, uncomplicated; F43.10 Post-traumatic stress disorder, unspecified; D12.6 Benign neoplasm of colon, unspecified; K21.9 Gastro-esophageal reflux disease without esophagitis; Z98.84 Bariatric surgery status; Z89.529 Acquired absence of unspecified knee; Z96.653 Presence of artificial knee joint, bilateral; Z96.643 Presence of artificial hip joint, bilateral; Z66 Do not resuscitate
CPT/HCPCS: 36415; 51798; 70450; 70551; 71045; 73562; 80048; 80076; 80306; 81001; 82077; 82306; 82390; 82525; 82550; 82607; 82728; 83036; 83516; 83540; 83550; 83605; 83735; 83880; 84165; 84207; 84425; 84439; 84443; 84446; 85025; 85651; 86039; 86140; 86431; 86618; 86703; 87040; 87045; 87046; 87427; 87493; 87631; 93005; 96361; 96365; 96366; 96372; 97161; 97165; 97530; 97535; 99284; 99285; G0427; A9153; A9270; G0378; J1650; J3411; J7030; J7050; J7120

== ENCOUNTER 2023-06-23 10:47 | Outpatient (CLI) | payer OTHER, SELFPAY | END 2023-06-23 10:48 | disposition home or self-care (01) | LOC: AMB 07-07 11:54 | PROVIDERS: PCP Family Medicine; Visit Provider Family Medicine | DX: R53.1 Weakness (principal); R41.0 Disorientation, unspecified | CPT/HCPCS: A0425; A0428 ==